=== PATIENT | female | born 1950 | race Caucasian/White ===

== ENCOUNTER 2024-11-12 09:20 | Outpatient (AMB) | payer MEDICARE, SELFPAY ==
[2024-11-12 09:43] VITALS: BP 130/90; PULSE 106; O2SAT 96; BMI 24.4
--- NOTE | 2024-11-12 09:43 | MHC.OFFVIS ---
Vital Signs 11/12/24 09:43 Height 5 ft 4 in Weight 142 lb BMI 24.4 BP 130/90 H Blood Pressure Location Rt brachial Position Sitting Pulse 106 H Pulse Source Pulse Oximeter Pulse Oximetry (%) 96 Oxygen Delivery Method Room Air Intake Visit Reasons: Closed fracture of rib lt side/nerve block eval Ui Engineer Required: No Allergies No Known Allergies Allergy (Verified 11/12/24 09:45) Medication List - Last Reconciled 11/12/24 by Queenie Duran, CORPORATE REAL E[employer] SPECIALIST fluoxetine 40 mg PO DAILY pravastatin 80 mg PO DAILY HPI HPI Closed fracture of rib lt side/nerve block eval: Details: History of Present Illness The patient is a 74-year-old female presenting with facial pain management. Her facial pain is linked to postherpetic neuralgia following a shingles outbreak in mid-May, initially treated as cellulitis. A significant delay in antiviral therapy, initiated in late June, was due to the initial misdiagnosis. Facial pain is characterized by consistent, probing, and stabbing sensations, intensifying in the evening. Physically, the patient struggles with this pain, affecting her quality of life. A rib fracture, sustained after a fall, has led to pain in the left chest, which is now improving. Previous medication interventions included SSRIs and gabapentin, though the latter affected her gait. Topical treatments for pain relief were attempted without targeting facial pain. The patient experienced right eyelid ptosis and facial asymmetry following the shingles event. She has expressed reluctance towards additional pharmacological measures due to prior adverse effects but mentioned potential interest in procedural interventions for managing symptoms. Pain Description - Onset: Began after a shingles outbreak in May - Quality: Constant probing, stabbing - Location: Left side of the face, extends to the left chest area post rib fracture - Intensity: 6-8/10 in evenings, 1-4/10 in mornings - Exacerbating factors: Eating or opening the mouth, masseter muscle spasm - Alleviating factors: None explicitly mentioned - Impact: Interferes with chewing, contributes to facial asymmetry Physical Exam - Neurological- Right eyelid ptosis, facial asymmetry likely due to masseter muscle spasm Pain Management - Affect: Pain impacts daily life and balance, causing reluctance to engage in activities - Analgesia: Used SSRIs and gabapentin; neither adequately controlled pain without adverse effects - Adverse Effects: Gabapentin caused gait impairment, leading to falls - Activities: Affected by facial pain and previous falls; trying topical treatments for rib pain - Aberrant Drug-Related Behaviors: No evidence of misuse or abuse behavior noted Procedure - Informed consent obtained for right pericranial nerve blocks - Marcaine 0.5% utilized for blocks; injected 0.5ml overlying right supra-orbital, supra-trochlear and auriculotemporal nerves - Patient tolerated procedure well with no blood loss - Agreed on follow-up as needed, based on response to injections Physical Exam Vital Signs: Last Vital Signs Pulse 106 H 11/12/24 09:43 BP 130/90 H 11/12/24 09:43 Pulse Ox 96 11/12/24 09:43 Oxygen Delivery Method Room Air 11/12/24 09:43 BMI result Body Mass Index 24.4 Assessment & Plan Assessment & Plan (1) Neuropathic postherpetic trigeminal neuralgia: Code(s): B02.22 - Postherpetic trigeminal neuralgia Category: Medical Plan Plan - Consider alternative medication options per neurology consultation, recognizing previous adverse effects. - Monitor response to nerve blocks for relief and evaluate continuation. - Consider MRI for ongoing symptoms as discussed with neurology. F/u with Dr. Torres. Patient was informed and verbally consented to the use of an ambient scribe for clinic note documentation during this visit. Discussion Notes During the consultation, we discussed the various management strategies for the patient?s facial pain related to postherpetic neuralgia. I explained the potential risks and benefits of medications like carbamazepine, highlighting that they may carry similar adverse effects as previous treatments like gabapentin. The patient expressed reluctance to experiment with new medications due to past experiences with side effects but was open to considering procedural interventions. We talked about the option of pericranial nerve blocks and agreed to administer the blocks today with Marcaine, noting that the procedural benefit remains uncertain until tried. We also covered the possibility of future imaging if symptoms persist and reviewed the risks against functional gains particularly relating to neural and muscle involvement. The patient agreed with the procedural plan and consent was obtained for the nerve block, also noting possible virtual follow-ups with neurology. Patient Instructions - Follow up with neurology as planned for medication management. - Monitor the response to nerve blocks and report any changes. - Schedule imaging as advised by the neurologist if symptoms persist. - Avoid new medications unless confirmed with your neurologist. Coding Level of Care Code New Pt Level 3 (90902) Diagnoses Neuropathic postherpetic trigeminal neuralgia B02.22
== END 2024-11-12 10:11 | disposition home or self-care (01) ==
PROVIDERS: PCP Family Medicine; Referring Provider Family Medicine; Visit Provider Internal Medicine
DX: B02.22 Postherpetic trigeminal neuralgia (principal)
CPT/HCPCS: 64400; 99203

== ENCOUNTER → 2024-11-12 09:20 | Outpatient (BNVA) | payer MEDICARE, SELFPAY | PROVIDERS: PCP Family Medicine; Referring Provider Family Medicine; Visit Provider Internal Medicine | DX: B02.22 Postherpetic trigeminal neuralgia (principal) | CPT/HCPCS: 64400; 99202 ==